=== PATIENT | male | born 1990 | race African-American/Black ===

== ENCOUNTER 2019-03-23 17:09 | Observation (INO) | payer SELFPAY ==
[2019-03-23] MEDS ORDERED: NA CHLORIDE 0.9% 1,000 ML ONE (17:27)
[2019-03-23] MEDS ORDERED: MEPERIDINE HCL 50 MG/ML ONE (17:27)
[2019-03-23] MEDS ORDERED: ONDANSETRON 4 MG/2 ML VIAL ONE (17:27)
[2019-03-23 17:34] LABS: Absolute Lymphocytes (CBC) 1.5 K/uL (0.7-4.9); Basophils % 0.6 % (0-1.3); Hematocrit 43.3 % (39.6-49.0); Lymphocytes % 23.5 % (15.3-44.8); MPV 9.3 fL (7.6-11.3)
[2019-03-23 17:35] LABS: Protime INR 0.95
--- NOTE | 2019-03-23 17:53 | RAD REPORT ---
EXAM DESCRIPTION: RAD - Chest Single View - 03/23/2019 5:47 pm CLINICAL HISTORY: CHEST PAIN Chest pain. COMPARISON: No comparisons FINDINGS: Portable technique limits examination quality. The lungs are grossly clear. The heart is normal in size. No displaced fractures. IMPRESSION: No acute intrathoracic process suspected.
[2019-03-23 18:02] LABS: ALT/SGPT 27 U/L (12-78); AST/SGOT 23 U/L (15-37); Albumin 4.1 g/dL (3.4-5.0); Alkaline Phosphatase 56 U/L (45-117); BUN Blood Urea Nitrogen 12 mg/dL (7-18); Bicarbonate 28 mmol/L (21-32); Bilirubin Direct < 0.1 mg/dL (0-0.2); Bilirubin Total 0.3 mg/dL (0.2-1.0); Glucose Level 125 mg/dL (74-106); Lipase 49 U/L (73-393); Magnesium 2.1 mg/dL (1.8-2.4); NT PRO-BNP 47 pg/mL (<125); Potassium 4.2 mmol/L (3.5-5.1); Sodium Level 143 mmol/L (136-145); Troponin (Emerg Dept Use Only) < 0.02 ng/mL (0.0-0.045)
[2019-03-23] MEDS ORDERED: HYDROMORPHONE HCL 0.5 MG/0.5 ML INJ ONE (18:26)
[2019-03-23] MEDS ORDERED: MAGNE/ALUM HYDROXD 30 ML UCUP ONE (18:26)
[2019-03-23] MEDS ORDERED: LIDOCAINE VISCOUS 2% SOLN 15 ML UDC ONE (18:27)
[2019-03-23] MEDS ORDERED: PANTOPRAZOLE 40 MG INJ ONE (18:27)
--- NOTE | 2019-03-23 19:32 | RAD REPORT ---
EXAM DESCRIPTION: US - Abdomen Exam Limited - 03/23/2019 7:12 pm CLINICAL HISTORY: r/o GB;Abd pain COMPARISON: <Comparisons> FINDINGS: The gallbladder demonstrates multiple large shadowing gallstones. No pericholecystic fluid or gallbladder wall thickening. The common bile duct is normal measuring 4 mm. The liver demonstrates no findings of intrahepatic biliary dilatation. IMPRESSION: Cholelithiasis.
[2019-03-23] MEDS ORDERED: HYDROMORPHONE HCL 1 MG/ML INJ ONE ×2 (19:53→21:37)
[2019-03-23] MEDS ORDERED: Meropenem 1 GM/100 ML BAG ONE (19:53)
--- NOTE | 2019-03-23 21:17 | ER ---
Nurse's Notes [facility] Name: Ricky Gardner Age: 28 yrs Sex: Male : 1990 Arrival Date: 03/23/2019 Time: 17:11 Bed 8 Private MD: Timi Lee S Diagnosis: Cholelithiasis;Intractable abdominal pain Presentation: 03/23 17:19 Presenting complaint: Patient states: chest and epigastric burning that began at 1400 ss today, and getting worse. Patient reports that last time he had this pain, it was a "combination of gallbladder and gallstones.". Transition of care: patient was not received from another setting of care. Onset of symptoms was March 23, 2019. Risk Assessment: Do you want to hurt yourself or someone else? Patient reports no desire to harm self or others. Initial Sepsis Screen: Does the patient meet any 2 criteria? No. Patient's initial sepsis screen is negative. Does the patient have a suspected source of infection? No. Patient's initial sepsis screen is negative. Care prior to arrival: None. 17:19 Method Of Arrival: Ambulatory ss 17:19 Acuity: BHAVNA 3 ss Historical: - Allergies: 17:22 PENICILLINS; ss - Home Meds: 17:22 None [Active]; ss - PMHx: 17:22 gallstones; ss - PSHx: 17:22 None; ss - Immunization history:: Adult Immunizations up to date. - Social history:: Smoking status: Patient uses tobacco products, smokes one-half pack cigarettes per day, Patient uses alcohol, only on a social basis. Patient/guardian denies using street drugs. - Ebola Screening: : Patient denies exposure to infectious person Patient denies travel to an Ebola-affected area in the 21 days before illness onset. Screenin:39 Abuse screen: Denies threats or abuse. Denies injuries from another. Nutritional rv screening: No deficits noted. Tuberculosis screening: No symptoms or risk factors identified. Fall Risk None identified. Assessment: 17:37 General: Appears uncomfortable, Behavior is restless. Pain: Complains of pain in chest rv Pain radiates to right arm Pain began 3 hours ago. Neuro: Level of Consciousness is awake, alert, obeys commands, Oriented to person, place, time, situation. Cardiovascular: Rhythm is sinus bradycardia. Respiratory: Airway is patent. GI: Pt is actively vomiting bile, Reports nausea. : No signs and/or symptoms were reported regarding the genitourinary system. EENT: No signs and/or symptoms were reported regarding the EENT system. Derm: Skin is intact. Musculoskeletal: No signs and/or symptoms reported regarding the musculoskeletal system. 19:10 Reassessment: No changes from previously documented assessment. rv 20:30 Reassessment: Patient and/or family updated on plan of care and expected duration. Pain ea level reassessed. Patient is alert, oriented x 3, equal unlabored respirations, skin warm/dry/pink. 21:50 Reassessment: Patient and/or family updated on plan of care and expected duration. Pain ea level reassessed. Patient is alert, oriented x 3, equal unlabored respirations, skin warm/dry/pink. 22:46 Reassessment: Report called to Megan HORAN on second floor. ea 23:16 Reassessment: Patient and/or family updated on plan of care and expected duration. Pain ea level reassessed. Patient is alert, oriented x 3, equal unlabored respirations, skin warm/dry/pink. Pt admitted to room 206, pt taken via stretcher, accompanied by family, pt tolerating well. Vital Signs: 17:22 BP 153 / 103; Pulse 69; Resp 24; Pulse Ox 100% on R/A; Weight 129.27 kg; Height 5 ft. 6 ss in. (167.64 cm); Pain 10/10; 17:30 Temp 98.6(TE); ss 18:00 BP 145 / 76; Pulse 73; Resp 19; Pulse Ox 98% on R/A; rv 18:30 BP 111 / 87; Pulse 68; Resp 15; Pulse Ox 98% on R/A; rv 19:00 BP 115 / 80; Pulse 68; Resp 24; Pulse Ox 98% on R/A; rv 20:15 BP 124 / 77; Pulse 64; Resp 18; Pulse Ox 100% on R/A; ea 21:43 BP 118 / 74; Pulse 60; Resp 19; Pulse Ox 95% on R/A; mt 23:00 BP 114 / 60; Pulse 60; Resp 18; Temp 97.8; Pulse Ox 98% on R/A; ea 17:22 Body Mass Index 46.00 (129.27 kg, 167.64 cm) ss ED Course: 17:11 Patient arrived in ED. mr 17:11 Timi Lee MD is Private Physician. mr 17:11 Matt Roldan, AUNG is Primary Nurse. rv 17:14 John Stafford PA is PHCP. jr8 17:14 Del Jones MD is Attending Physician. jr8 17:21 Triage completed. ss 17:22 Arm band placed on right wrist. ss 17:39 Patient has correct armband on for positive identification. Placed in gown. Bed in low rv position. Call light in reach. Side rails up X 1. Adult w/ patient. panel monitor on. Pulse ox on. NIBP on. 17:39 Inserted saline lock: 20 gauge in right antecubital area, using aseptic technique. rv Blood collected. Patient maintains SpO2 saturation greater than 95% on room air. 17:47 XRAY Chest (1 view) In Process Unspecified. EDMS 19:11 Ultrasound completed. Patient tolerated well. sg3 19:27 US Abdomen Limited In Process Unspecified. EDMS 20:44 Leeroy Sharpe MD is Hospitalizing Provider. jr8 20:50 Hospitalizing Provider role handed off by Leeroy Sharpe MD jr8 20:50 Alondra Terrazas MD is Hospitalizing Provider. jr8 22:46 No provider procedures requiring assistance completed. Patient admitted, IV remains in ea place. Administered Medications: 17:35 Drug: Zofran 4 mg Route: IVP; Site: right antecubital; rv 18:33 Follow up: Response: Nausea is decreased rv 17:35 Drug: NS 0.9% 500 ml Route: IV; Rate: bolus; Site: right antecubital; rv 17:36 Drug: Demerol 50 mg {Note: rass 1.} Route: IVP; Site: right antecubital; rv 18:32 Follow up: Response: Pain is unchanged, physician notified rv 18:32 Drug: GI Cocktail without - (Maalox Suspension 30 ml, Lidocaine Liquid 2 % 15 rv ml) Route: PO; 19:59 Follow up: Response: Pain is unchanged, physician notified rv 18:32 Drug: Dilaudid 0.5 mg {Note: rass 0.} Route: IVP; Site: right antecubital; rv 20:00 Follow up: Response: Pain is unchanged, physician notified rv 18:32 Drug: ProTONIX 40 mg Route: IVP; Site: left antecubital; rv 20:00 Follow up: Response: Pain is unchanged, physician notified rv 19:58 Drug: Meropenem 1 grams Route: IV; Rate: calculated rate; Site: right antecubital; rv 22:00 Follow up: Response: No adverse reaction; IV Status: Completed infusion; IV Intake: ea 100ml 19:58 Drug: Dilaudid 1 mg {Note: RASS 0.} Route: IVP; Site: right antecubital; rv 20:50 Follow up: Response: No adverse reaction; Pain is decreased; RASS: Restless (+1) ea 21:44 Drug: Dilaudid 1 mg {Note: RASS 1.} Route: IVP; Site: right antecubital; ea 22:30 Follow up: Response: No adverse reaction; Pain is decreased; RASS: Alert and Calm (0) ea Intake: 22:00 IV: 100ml; Total: 100ml. ea Outcome: 20:45 Decision to Hospitalize by Provider. jrBaljit 22:46 Instructed on the need for admit. ea 23:15 Admitted to Med/surg accompanied by tech, via stretcher, room 206, with chart, Report ea called to Receiving nurse on second floor 23:15 Condition: stable 23:25 Patient left the ED. ea Signatures: Dispatcher [employer] [facility] Mami DanielsLesly, RN John Perez PA PA jr8 Thompson, Moriah mt Antunez, Elena, RN RN ea Godinez, Sarah [facility] Matt Roldan RN RN rv
--- NOTE | 2019-03-23 21:18 | EDPHYS ---
Physician Documentation [facility] Name: Ricky Gardner Age: 28 yrs Sex: Male : 1990 Arrival Date: 03/23/2019 Time: 17:11 Bed 8 Private MD: Timi Lee S ED Physician Del Jones HPI: 03/23 18:00 This 28 yrs old Black Male presents to ER via Ambulatory with complaints of Chest Pain, jr8 Abdominal Pain. 18:01 The patient or guardian reports chest pain that is located primarily in the substernal jr8 area, epigastric area. The pain radiates to back. Associated signs and symptoms: Pertinent positives: nausea, vomiting. The chest pain is described as a pressure, sharp, stabbing. Duration: The patient or guardian reports a single episode, that is still ongoing. Modifying factors: The symptoms are alleviated by nothing. the symptoms are aggravated by nothing. Severity of pain: At its worst the pain was moderate in the emergency department the pain is unchanged. The patient has experienced a previous episode, but today's symptoms are worse. The patient has not recently seen a physician. Patient stated that he has had chest pain and epigastric pain in past and that it may be from gastritis and gallstones. Stated that it was mild at that time. Today while going to a wedding had sudden onset of symptoms again but much worse today . Historical: - Allergies: 17:22 PENICILLINS; ss - Home Meds: 17:22 None [Active]; ss - PMHx: 17:22 gallstones; ss - PSHx: 17:22 None; ss - Immunization history:: Adult Immunizations up to date. - Social history:: Smoking status: Patient uses tobacco products, smokes one-half pack cigarettes per day, Patient uses alcohol, only on a social basis. Patient/guardian denies using street drugs. - Ebola Screening: : Patient denies exposure to infectious person Patient denies travel to an Ebola-affected area in the 21 days before illness onset. ROS: 18:01 Eyes: Negative for injury, pain, redness, and discharge, ENT: Negative for injury, jr8 pain, and discharge, Neck: Negative for injury, pain, and swelling, Respiratory: Negative for shortness of breath, cough, wheezing, and pleuritic chest pain, Back: Negative for injury and pain, MS/Extremity: Negative for injury and deformity, Skin: Negative for injury, rash, and discoloration, Neuro: Negative for headache, weakness, numbness, tingling, and seizure. 18:01 Cardiovascular: Positive for chest pain, Negative for edema, orthopnea, palpitations, paroxysmal nocturnal dyspnea. 18:01 Abdomen/GI: Positive for abdominal pain, nausea and vomiting, Negative for diarrhea, constipation, abdominal cramps, abdominal distension, anorexia, dysphagia, hematemesis, black/tarry stool, rectal pain, rectal bleeding, bowel incontinence, flatulence. Exam: 18:01 Eyes: Pupils equal round and reactive to light, extra-ocular motions intact. Lids and jr8 lashes normal. Conjunctiva and sclera are non-icteric and not injected. Cornea within normal limits. Periorbital areas with no swelling, redness, or edema. ENT: Nares patent. No nasal discharge, no septal abnormalities noted. Tympanic membranes are normal and external auditory canals are clear. Oropharynx with no redness, swelling, or masses, exudates, or evidence of obstruction, uvula midline. Mucous membranes moist. Neck: Trachea midline, no thyromegaly or masses palpated, and no cervical lymphadenopathy. Supple, full range of motion without nuchal rigidity, or vertebral point tenderness. No Meningismus. Cardiovascular: Regular rate and rhythm with a normal S1 and S2. No gallops, murmurs, or rubs. Normal PMI, no JVD. No pulse deficits. Respiratory: Lungs have equal breath sounds bilaterally, clear to auscultation and percussion. No rales, rhonchi or wheezes noted. No increased work of breathing, no retractions or nasal flaring. Back: No spinal tenderness. No costovertebral tenderness. Full range of motion. Skin: Warm, dry with normal turgor. Normal color with no rashes, no lesions, and no evidence of cellulitis. MS/ Extremity: Pulses equal, no cyanosis. Neurovascular intact. Full, normal range of motion. Neuro: Awake and alert, GCS 15, oriented to person, place, time, and situation. Cranial nerves II-XII grossly intact. Motor strength 5/5 in all extremities. Sensory grossly intact. Cerebellar exam normal. Normal gait. 18:01 Abdomen/GI: Inspection: obese Bowel sounds: active, all quadrants, Palpation: soft, in all quadrants, moderate abdominal tenderness, in the epigastric area and right upper quadrant, mass, is not appreciated, rebound tenderness, is not appreciated, voluntary guarding, is not appreciated, involuntary guarding, is not appreciated, no appreciated organomegaly, Indicators: McBurney's point is not tender, Ching's sign is positive, Rovsing's sign is negative, Liver: tenderness, is not appreciated. Vital Signs: 17:22 BP 153 / 103; Pulse 69; Resp 24; Pulse Ox 100% on R/A; Weight 129.27 kg; Height 5 ft. 6 ss in. (167.64 cm); Pain 10/10; 17:30 Temp 98.6(TE); ss 18:00 BP 145 / 76; Pulse 73; Resp 19; Pulse Ox 98% on R/A; rv 18:30 BP 111 / 87; Pulse 68; Resp 15; Pulse Ox 98% on R/A; rv 19:00 BP 115 / 80; Pulse 68; Resp 24; Pulse Ox 98% on R/A; rv 20:15 BP 124 / 77; Pulse 64; Resp 18; Pulse Ox 100% on R/A; ea 21:43 BP 118 / 74; Pulse 60; Resp 19; Pulse Ox 95% on R/A; mt 23:00 BP 114 / 60; Pulse 60; Resp 18; Temp 97.8; Pulse Ox 98% on R/A; ea 17:22 Body Mass Index 46.00 (129.27 kg, 167.64 cm) ss MDM: 17:18 Patient medically screened. jr8 20:10 Data reviewed: vital signs, nurses notes, lab test result(s), EKG, radiologic studies, jr8 plain films, ultrasound. Data interpreted: Pulse oximetry: on room air is 98 %. Interpretation: normal. Counseling: I had a detailed discussion with the patient and/or guardian regarding: the historical points, exam findings, and any diagnostic results supporting the discharge/admit diagnosis, lab results, radiology results. ED course: Consulted Dr. Sharpe due to intractable pain at this point. Wants me to try antibiotics and a couple more rounds of pain medication. If still not better will admit and do a cholecystectomy . 20:41 ED course: Patient stated that the medications makes him sleepy but pain still 8 of 10. jr8 Will admit to Dr. Sharpe . 03/23 17:19 Order name: Basic Metabolic Panel; Complete Time: 18:03 03/23 17:19 Order name: CBC with Diff; Complete Time: 17:54 03/23 17:19 Order name: LFT's; Complete Time: 18:03 03/23 17:19 Order name: Magnesium; Complete Time: 18:03 03/23 17:19 Order name: NT PRO-BNP; Complete Time: 18:03 03/23 17:19 Order name: PT-INR; Complete Time: 17:54 03/23 17:19 Order name: Troponin (emerg Dept Use Only); Complete Time: 18:03 03/23 17:19 Order name: XRAY Chest (1 view); Complete Time: 17:59 03/23 17:19 Order name: Lipase; Complete Time: 18:03 03/23 17:59 Order name: US Abdomen Limited; Complete Time: 19:40 03/23 19:44 Order name: Troponin (emerg Dept Use Only); Complete Time: 20:40 fc 03/23 17:19 Order name: EKG; Complete Time: 17:22 03/23 17:19 Order name: Cardiac monitoring; Complete Time: 17:25 03/23 17:19 Order name: EKG - Nurse/Tech; Complete Time: 17:25 03/23 17:19 Order name: IV Saline Lock; Complete Time: 17:25 03/23 17:19 Order name: Labs collected and sent; Complete Time: 17:25 03/23 17:19 Order name: O2 Per Protocol; Complete Time: 17:25 03/23 17:19 Order name: O2 Sat Monitoring; Complete Time: 17:25 03/23 22:34 Order name: CONS Physician Consult EDMS 03/23 22:34 Order name: NPO EDMS Administered Medications: 17:35 Drug: Zofran 4 mg Route: IVP; Site: right antecubital; rv 18:33 Follow up: Response: Nausea is decreased rv 17:35 Drug: NS 0.9% 500 ml Route: IV; Rate: bolus; Site: right antecubital; rv 17:36 Drug: Demerol 50 mg {Note: rass 1.} Route: IVP; Site: right antecubital; rv 18:32 Follow up: Response: Pain is unchanged, physician notified rv 18:32 Drug: GI Cocktail without - (Maalox Suspension 30 ml, Lidocaine Liquid 2 % 15 rv ml) Route: PO; 19:59 Follow up: Response: Pain is unchanged, physician notified rv 18:32 Drug: Dilaudid 0.5 mg {Note: rass 0.} Route: IVP; Site: right antecubital; rv 20:00 Follow up: Response: Pain is unchanged, physician notified rv 18:32 Drug: ProTONIX 40 mg Route: IVP; Site: left antecubital; rv 20:00 Follow up: Response: Pain is unchanged, physician notified rv 19:58 Drug: Meropenem 1 grams Route: IV; Rate: calculated rate; Site: right antecubital; rv 22:00 Follow up: Response: No adverse reaction; IV Status: Completed infusion; IV Intake: ea 100ml 19:58 Drug: Dilaudid 1 mg {Note: RASS 0.} Route: IVP; Site: right antecubital; rv 20:50 Follow up: Response: No adverse reaction; Pain is decreased; RASS: Restless (+1) ea 21:44 Drug: Dilaudid 1 mg {Note: RASS 1.} Route: IVP; Site: right antecubital; ea 22:30 Follow up: Response: No adverse reaction; Pain is decreased; RASS: Alert and Calm (0) ea Disposition: 03/23/19 20:45 Hospitalization ordered by Alondra Terrazas for Observation. Preliminary diagnosis are Cholelithiasis, Intractable abdominal pain . - Bed requested for Telemetry/MedSurg (observation). - Status is Observation. ea - Condition is Stable. - Problem is new. - Symptoms are unchanged. UTI on Admission? No Addendum: 03/26/2019 15:17 Co-signature as Attending Physician, Del Jonse MD. g s Signatures: Dispatcher [employer] [facility] Claudia Souza RN RN Lesly Way RN RN ss John Stafford, KOBE PA jr8 Madison Win RN RN ea Starr, Gregory, MD MD Jamar, Matt, RN RN rv Corrections: (The following items were deleted from the chart) 03/23 20:50 20:45 Hospitalization Ordered by Leeroy Sharpe MD for Observation. Preliminary diagnosis jr8 is Cholelithiasis; Intractable abdominal pain . Bed requested for Telemetry/MedSurg (observation). Status is Observation. Condition is Stable. Problem is new. Symptoms are unchanged. UTI on Admission? No. jr8 22:36 20:50 03/23/2019 20:45 Hospitalization Ordered by Alondra Terrazas MD for Observation. mw Preliminary diagnosis is Cholelithiasis; Intractable abdominal pain . Bed requested for Telemetry/MedSurg (observation). Status is Observation. Condition is Stable. Problem is new. Symptoms are unchanged. UTI on Admission? No. jr8 23:25 22:36 03/23/2019 20:45 Hospitalization Ordered by Alondra Terrazas MD for Observation. ea Preliminary diagnosis is Cholelithiasis; Intractable abdominal pain . Bed requested for Telemetry/MedSurg (observation). Status is Observation. Condition is Stable. Problem is new. Symptoms are unchanged. UTI on Admission? No. mw
[2019-03-23] MEDS ORDERED: ONDANSETRON 4 MG/2 ML VIAL IV PRN (21:48)
[2019-03-23] MEDS ORDERED: Levofloxacin500mg IV 500 MG/100 ML BAG IV SCH (22:00)
[2019-03-24] MEDS: NA CHLORIDE 0.9% 1,000 ML IV SCH ×2 (00:26→08:00)
[2019-03-24] MEDS: METRONIDAZOLE 500mg IVPB 500 MG/100 ML BAG IV SCH ×3 (00:27→11:20)
[2019-03-24] MEDS: MORPHINE 4 MG/ML SYR IV PRN ×2 (00:27→03:57)
[2019-03-24 04:59] LABS: Urine Appearance CLEAR; Urine Bilirubin NEGATIVE (NEG); Urine Blood NEGATIVE (NEG); Urine Color YELLOW; Urine Glucose NEGATIVE (NEG); Urine Protein NEGATIVE (NEG); Urine Urobilinogen 0.2 mg/dL (0.2-1.0)
[2019-03-24 05:00] LABS: Urine Microscopic Reflex NO UMIC
[2019-03-24 06:18] LABS: Absolute Lymphocytes (CBC) 1.2 K/uL (0.7-4.9); Basophils % 0.2 % (0-1.3); Hematocrit 42.6 % (39.6-49.0); MPV 10.1 fL (7.6-11.3)
[2019-03-24 06:27] LABS: ALT/SGPT 27 U/L (12-78); AST/SGOT 17 U/L (15-37); Albumin 3.9 g/dL (3.4-5.0); Alkaline Phosphatase 49 U/L (45-117); BUN Blood Urea Nitrogen 10 mg/dL (7-18); Bicarbonate 29 mmol/L (21-32); Bilirubin Total 0.6 mg/dL (0.2-1.0); Glucose Level 94 mg/dL (74-106); Lipase 46 U/L (73-393); Magnesium 2.2 mg/dL (1.8-2.4); Phosphorus 2.8 mg/dL (2.5-4.9); Potassium 4.3 mmol/L (3.5-5.1); Sodium Level 141 mmol/L (136-145)
[2019-03-24 06:38] LABS: Protime INR 1.03
[2019-03-24] MEDS ORDERED: MORPHINE 2 MG/ML SYR IV ONE (06:48)
--- NOTE | 2019-03-24 07:41 | P.HP ---
Certification for Inpatient Patient admitted to: Observation With expected LOS: <2 Midnights Patient will require the following post-hospital care: None Practitioner: I am a practitioner with admitting privileges, knowledge of patient current condition, hospital course, and medical plan of care. Services: Services provided to patient in accordance with Admission requirements found in Title 42 Section 412.3 of the Code of Federal Regulations Patient History Date of Service: 03/23/19 Reason for admission: Abdominal pain/nausea and vomiting History of Present Illness: Patient is a 28-year-old gentleman who comes into the hospital with abdominal discomfort. He also has some epigastric pain as well. He said the pain is diffuse but mainly in the right upper quadrant-he states that the pain is sharp and can radiate to the right upper back. Patient has had intractable nausea and vomiting. He has had similar symptoms in the past. He was told that he may have gallstones or gastritis. He has been having an for the last 24 hr. His symptoms of gradually worsened so he came into the emergency room for further evaluation. In the ER he had multiple diagnostic studies including EKG and troponins. These were negative. He also had a abdominal ultrasound which revealed cholelithiasis. He will be admitted to the hospital for further evaluation. Allergies Penicillins Allergy (Mild, Verified 03/23/19 21:50) Hives/Rash Home Medications: NK [No Home Meds] 03/24/19 - Past Medical/Surgical History Has patient received pneumonia vaccine in the past: No Diabetic: No -: gallstone -: blilateral tube hearing - Family History Mother Medical History: Cancer - Social History Smoking Status: Current every day smoker Alcohol use: Yes Place of Residence: Home Review of Systems 10-point ROS is otherwise unremarkable Physical Examination - Vital Signs Temperature: 97.8 F Blood Pressure: 140/90 Pulse: 63 Respirations: 18 Pulse Ox (%): 97 - Physical Exam General: Alert, In no apparent distress, Oriented x3 HEENT: Atraumatic, PERRLA, Mucous membr. moist/pink, EOMI, Sclerae nonicteric Neck: Supple, 2+ carotid pulse no bruit, No LAD, Without JVD or thyroid abnormality Respiratory: Clear to auscultation bilaterally, Normal air movement Cardiovascular: Regular rate/rhythm, Normal S1 S2, No murmurs Gastrointestinal: Normal bowel sounds, Soft and benign, Non-distended, No tenderness Musculoskeletal: No clubbing, No swelling, No tenderness Integumentary: No rashes Neurological: Normal gait, Normal speech, Normal strength at 5/5 x4 extr, Normal tone, Sensation intact, Cranial nerves 3-12 intact, Normal affect Lymphatics: No axilla or inguinal lymphadenopathy - Studies Laboratory Data (last 24 hrs) 03/23/19 17:20: PT 11.2, INR 0.95 03/23/19 17:20: WBC 6.5, Hgb 14.1, Hct 43.3, Plt Count 188 03/23/19 17:20: Sodium 143, Potassium 4.2, BUN 12, Creatinine 1.15, Glucose 125 H, Magnesium 2.1, Total Bilirubin 0.3, AST 23, ALT 27, Alkaline Phosphatase 56, Lipase 49 L Assessment & Plan - Problems (Diagnosis) (1) Abdominal pain Current Visit: Yes Status: Acute (2) Cholelithiasis Current Visit: Yes Status: Acute - Plan Plan: 1. IV hydration 2. Pain control 3. NPO 4. Surgery consultation 5. EKG and serial troponins 6. Monitor LFTs and lipase 7. Strict blood pressure control 8. GI and DVT prophylaxis Discharge Plan: Home Plan to discharge in: 48 Hours - Advance Directives Does patient have a Living Will: No Does patient have a Durable POA for Healthcare: No - Code Status/Comfort Care Code Status Assessed: Yes Code Status: Full Code Critical Care: No Time Spent Managing PTS Care (In Minutes): 45
--- NOTE | 2019-03-24 09:16 | P.PN ---
Subjective Date of Service: 03/24/19 Primary Care Provider: Dr. Lee Chief Complaint: Abdominal pain/nausea and vomiting Subjective: Other (Still with abdominal pain this morning. Nausea improved.) Physical Examination - Vital Signs Temperature: 97.8 F Blood Pressure: 140/90 Pulse: 63 Respirations: 18 Pulse Ox (%): 97 - Physical Exam General: Alert, In no apparent distress, Oriented x3, Cooperative HEENT: Atraumatic Neck: Supple Respiratory: Clear to auscultation bilaterally, Normal air movement Cardiovascular: Normal pulses, Regular rate/rhythm Gastrointestinal: Normal bowel sounds, Soft and benign, Non-distended, No masses , No rebound, No guarding, Tenderness (Right upper quadrant tenderness) Musculoskeletal: No erythema, No tenderness, No warmth Integumentary: No tenderness/swelling, No erythema, No warmth, No cyanosis Neurological: Normal speech, Normal strength at 5/5 x4 extr, Normal tone, Normal affect - Studies Laboratory Data (last 24 hrs) 03/23/19 17:20: PT 11.2, INR 0.95 03/23/19 17:20: WBC 6.5, Hgb 14.1, Hct 43.3, Plt Count 188 03/23/19 17:20: Sodium 143, Potassium 4.2, BUN 12, Creatinine 1.15, Glucose 125 H, Magnesium 2.1, Total Bilirubin 0.3, AST 23, ALT 27, Alkaline Phosphatase 56, Lipase 49 L Medications List Reviewed: Yes Assessment & Plan Discharge Plan: Home Plan to discharge in: 24 Hours Physician Review Additional Text: Impression: Right upper quadrant abdominal pain with nausea and vomiting secondary to acute cholecystitis with cholelithiasis Obesity, BMI 50.3 Plan: Right upper quadrant abdominal pain with nausea and vomiting secondary to acute cholecystitis with cholelithiasis: Patient remains NPO at this time. Continue IV antibiotic therapy. Continue medication for pain and nausea. Patient on DVT prophylaxis-Lovenox. Abdominal ultrasound reviewed. Await surgery recommendations. Anticipate need for surgical intervention during this hospitalization. Anticipate discharge in the next 24 hr pending surgical evaluation with possible intervention. Obesity, BMI 50.3: Will address lifestyle modification education. Time Spent Managing Pts Care (In Minutes): 55
[2019-03-24] MEDS ORDERED: BUPIVACA 0.5%/EPI 0.0005%/PF 10 ML VIAL ONE (10:38)
[2019-03-24] MEDS ORDERED: SUCCINYLCHOLINE 20 MG/ML (10 ML) IV ONE (10:38)
[2019-03-24] MEDS ORDERED: PROPOFOL 200 MG/20 ML VIAL IV ONE (10:43)
[2019-03-24] MEDS ORDERED: MIDAZOLAM HCL 2 MG/2 ML INJ ONE ×2 (10:44→11:16)
[2019-03-24] MEDS ORDERED: FENTANYL CITR 250 MCG/5 ML ONE (10:44)
[2019-03-24] MEDS ORDERED: GLYCOPYRROLATE 0.2 MG/ML SYR ONE ×3 (10:50→11:52)
[2019-03-24] MEDS ORDERED: ROCURONIUM 50 MG/5 ML VIAL IV ONE ×2 (10:50→11:15)
--- NOTE | 2019-03-24 10:53 | CON ---
Date of Consultation: 03/24/2019 Brief History Of Present Illness: Patient is a 28-year-old gentleman, who comes to the hospital with abdominal pain in the epigastrium right upper quadrant with radiation to his back i nto his chest beginning yesterday. It was mainly in the right upper quadrant and it was sharp, stabb ing, and caused intractable nausea and vomiting for some time. He has had similar episodes before in the past. He was told he had gallstones in the past and maybe inflammation of the stomach. This avitia s been getting progressively worse and as such, he came to the emergency room. He was treated in the emergency room with pain medication and IV fluids and his pain did not significantly improve and as such, he was admitted to the hospital. He had multiple diagnostic studies including EKG and troponin s, which were all negative. He was admitted for pain management and surgical planning. Past Medical History: Significant for gallstones. Past Surgical History: Negative. Allergies: PENICILLIN, WHICH CAUSES MILD RASH. Home Medications: None. Social History: He smokes a pack per day for years. He uses alcohol recreationally. Denies any rec reational drug use. His mother has a history of cancer. Review of Systems: 10-point review of systems other than HPI, denies. Physical Examination: Vital Signs: At the time of my examination, his BMI is 50.3. His blood pressure 140/90, pulse is 63 , respiratory rate 18, temperature 97.8. General: He is awake, alert, and oriented. Psychiatric: Appropriate. Conversive. HEENT: Normocephalic. Sclerae icteric. Mucous membranes are moist. Oropharynx clear. Neck: Supple. No JVD. Chest: Normal expansion and excursion. Cardiovascular: Regular rate and rhythm. Pulmonary: Clear to auscultation bilaterally. Abdomen: Soft with positive right upper quadrant Ching sign. Positive rebound. Positive focal per itonitis. Extremities: No clubbing, cyanosis, or edema. Skin: Warm and dry. Laboratory Data: Reveals a white blood count of 11.7, hemoglobin is 14.3, hematocrit of 42.6, platel et count 246, neutrophils 83%, PT 12.1, INR 1.03, PTT is 36.1. Sodium 141, potassium 4.3, chloride 1 05, carbon dioxide 29, BUN 10, creatinine 0.9, glucose is 94, magnesium 2.2, total bilirubin 0.6, dir ect component was 0.1 on admission. AST is 17, ALT 27, alkaline phosphatase is 49. His lipase is 46 . UA was essentially negative. He had an ultrasound of the right upper quadrant, which officially r ead as cholelithiasis. Gallbladder demonstrates multiple large shadowing stones, no pericholecystic fluid or gallbladder wall thickening, and the common bile duct is normal, measuring 4 mm. Liver demo nstrates no findings of intrahepatic biliary ductal dilatation. Assessment And Plan: This is a 28-year-old male, who comes in with signs and symptoms of acute bilia ry colic with cholelithiasis. 1.IV fluid hydration. 2.Antibiotic coverage. 3.I have explained the risks, benefits, and alternatives of laparoscopic, possible open cholecystect bryce including but not limited to bleeding, infection, damage to surrounding tissues, need for further operation procedures, injury to bile ducts and intestines. Patient agrees to proceed as indicated. Thank you for this interesting consult. SAMMY/JOSE ANGEL Voice ID: [id number] Report ID: [id number]
[2019-03-24] MEDS ORDERED: NA CHLORIDE 0.9% 0 ML ONE (11:13)
[2019-03-24] MEDS ORDERED: Ringers Lactate 1,000 ML IV ONE (11:15)
[2019-03-24] MEDS ORDERED: NEOSTIGMINE 1 MG/ML -10 ML VIAL ONE (11:51)
[2019-03-24] MEDS ORDERED: ONDANSETRON 4 MG/2 ML VIAL ONE (11:52)
--- NOTE | 2019-03-24 12:21 | P.OP ---
Preoperative diagnosis: Cholecystitis with Cholelithiasis Postoperative diagnosis: Cholecystitis with Cholelithiasis Primary procedure: Laparoscopic Cholecystectomy Anesthesia: GETA + Local Estimated blood loss: <5cc Specimen: Gallbladder Findings: Inflammation, distended gallbladder, stone in GB neck, adhesions Complications: None Transferred to: Recovery Room Condition: Good
--- NOTE | 2019-03-24 12:44 | P.DS ---
Admission Date: 03/23/19 Discharge Date: 03/24/19 Primary Care Provider: Dr. Lee Disposition: ROUTINE DISCHARGE Discharge Condition: GOOD Reason for Admission: Abdominal pain/nausea and vomiting Consultations: Surgery-Dr. Sharpe Procedures: ABUS: FINDINGS: The gallbladder demonstrates multiple large shadowing gallstones. No pericholecystic fluid or gallbladder wall thickening. The common bile duct is normal measuring 4 mm. The liver demonstrates no findings of intrahepatic biliary dilatation. IMPRESSION: Cholelithiasis. Surgery: Date of procedure: 03/24/2019 Surgeon: Dr. Leeroy Sharpe Preop diagnosis: Cholecystitis with cholelithiasis Postop diagnosis: Cholecystitis with cholelithiasis Primary procedure: Laparoscopic cholecystectomy Specimen gallbladder Findings: Inflammation, distended gallbladder, stone in gallbladder neck, adhesions Complications: None Conditions: Good Medical Problem List: Right upper quadrant abdominal pain with nausea and vomiting secondary to acute cholecystitis with cholelithiasis Obesity, BMI 50.3 Brief History of Present Illness: 28-year-old male presented to the emergency room with nausea, vomiting and right upper quadrant abdominal pain. Patient with history of gallstones. Patient found to have acute cholecystitis with cholelithiasis. Patient was admitted for further evaluation and treatment. Surgery consulted. Hospital Course: Patient presented with right upper quadrant abdominal pain with nausea and vomiting secondary to acute cholecystitis with cholelithiasis. Patient seen and evaluated by surgery. Surgical intervention was required. Patient had laparoscopic cholecystectomy. No complications noted. Patient cleared by surgery for discharge. Patient will be provided medication for pain by surgery to be use as needed. Recommendation is to follow up with surgery in 1 week. No heavy lifting, pushing or pulling is recommended. Postop care provided. Vital Signs/Physical Exam: Temp Pulse Resp BP Pulse Ox 98.4 F 93 H 18 141/74 H 97 03/24/19 12:35 03/24/19 12:35 03/24/19 12:35 03/24/19 12:35 03/24/19 09:16 General: Alert, In no apparent distress, Oriented x3, Cooperative HEENT: Atraumatic Neck: Supple Respiratory: Clear to auscultation bilaterally, Normal air movement Cardiovascular: Normal pulses, Regular rate/rhythm Gastrointestinal: Other (Postop changes noted) Neurological: Normal speech, Normal strength at 5/5 x4 extr, Normal tone Laboratory Data at Discharge: WBC 11.7 K/uL (4.3-10.9) H D 03/24/19 05:38 Hgb 14.3 g/dL (13.6-17.9) 03/24/19 05:38 Hct 42.6 % (39.6-49.0) 03/24/19 05:38 Plt Count 246 K/uL (152-406) D 03/24/19 05:38 PT 12.1 SECONDS (9.5-12.5) 03/24/19 05:38 INR 1.03 03/24/19 05:38 APTT 36.1 SECONDS (24.3-36.9) 03/24/19 05:38 Sodium 141 mmol/L (136-145) 03/24/19 05:38 Potassium 4.3 mmol/L (3.5-5.1) 03/24/19 05:38 BUN 10 mg/dL (7-18) 03/24/19 05:38 Creatinine 0.98 mg/dL (0.55-1.3) 03/24/19 05:38 Glucose 94 mg/dL (74-106) 03/24/19 05:38 Phosphorus 2.8 mg/dL (2.5-4.9) 03/24/19 05:38 Magnesium 2.2 mg/dL (1.8-2.4) 03/24/19 05:38 Total Bilirubin 0.6 mg/dL (0.2-1.0) 03/24/19 05:38 AST 17 U/L (15-37) 03/24/19 05:38 ALT 27 U/L (12-78) 03/24/19 05:38 Alkaline Phosphatase 49 U/L (45-117) 03/24/19 05:38 Lipase 46 U/L (73-393) L 03/24/19 05:38 Home Medications: NK [No Home Meds] 03/24/19 Patient Discharge Instructions: 1. Patient presented with right upper quadrant abdominal pain with nausea and vomiting secondary to acute cholecystitis with cholelithiasis. Patient seen and evaluated by surgery. Surgical intervention was required. Patient had laparoscopic cholecystectomy. No complications noted. Patient cleared by surgery for discharge. Patient will be provided medication for pain by surgery to be use as needed. Recommendation is to follow up with surgery in 1 week. No heavy lifting, pushing or pulling is recommended. Postop care provided. Diet: Harvel Activity: No lifting more than 10 lbs Followup: Leeroy Sharpe MD [ACTIVE - CAN ADMIT] - Time spent managing pt's care (in minutes): 55
[2019-03-24] MEDS ORDERED: KETOROLAC 30 MG/ML INJ ONE (12:52)
--- NOTE | 2019-03-24 14:24 | OP ---
Date of Procedure: 03/24/2019 Surgeon: Leeroy Sharpe MD, Preoperative Diagnosis: Cholecystitis with cholelithiasis. Postoperative Diagnosis: Cholecystitis with cholelithiasis. Procedure Performed: Laparoscopic cholecystectomy. Anesthesia: General endotracheal plus local with 0.5% Marcaine with epinephrine. Estimated Blood Loss: 5 mL. Specimen: Gallbladder. Findings: 1.Inflammation. 2.Distended gallbladder. 3.Stone in gallbladder neck impacted. 4.Dense abdominal adhesions between the duodenum/stomach to anterior wall of gallbladder requiring b doug dissection. Complications: None. Disposition: Transferred to recovery room in good condition. Procedure In Detail: After informed consent was obtained, patient was brought to the operating room, prepped and draped in the usual sterile fashion. After adequate anesthesia was achieved, a supraumb ilical area was anesthetized with 0.25% Marcaine and sharply incised. A 5-mm trocar was introduced i nto the abdomen without evidence of complication. There was no injury upon entry into the abdomen to any vital structures and the abdomen was inspected at this time visually. Additional trocar site wa s chosen in the epigastric region. This was similarly anesthetized, sharply incised. A 5-mm trocar was introduced in the abdomen without evidence of complication. The umbilical trocar was then up-siz ed to a 12 mm under direct visualization without evidence of complication. Additional trocar site wa s chosen in the right upper quadrant. These were both similarly anesthetized, sharply incised and tw o 5 mm trocars introduced in the abdomen without evidence of complication for a total of 4 trocar ent melina. Patient was then positioned head up, right-side up position. Ratcheted grasper was used to at tempt to grasp the patient's gallbladder, which was found to be quite distended. Decompression needl e was then inserted in the fundus of the gallbladder and decompressed the gallbladder adequately to a llow for grasping and manipulation of the gallbladder. There were multiple dense adhesions between t he stomach, duodenum and omentum to the anterior and lateral aspect of the gallbladder as well as ludmila n to the Radha pouch region. These required blunt and sharp dissection as well as minimal electro cautery. After the dissection was completed, the ratcheted grasper was used to grasp the patient's g allbladder fundus and placed toward his right shoulder. Dissection continued down near the Radha pouch to expose 2 structures, both identified as the cystic duct, cystic artery. The critical view o f safety was obtained at this time visualizing the liver posteriorly and only the 2 structures were e ntering the gallbladder. The titanium clips were then placed doubly on the proximal and singly on th e distal side of both cystic duct and cystic artery and they were ligated using Endo Peter at this t emiliana. The gallbladder was removed off the hepatic fossa without evidence of complication. There was minimal hemostatic maneuvers required on the lateral aspect of the gallbladder fossa which were easil y controlled with electrocautery. The gallbladder was then placed in an EndoCatch bag, removed the u mbilical trocar, sent off for pathologic examination. The abdomen was then inspected one last time. The clips were found to be in good anatomic position. There was no spillage of bile. No additional hemostatic maneuvers were required. The abdomen was then copiously irrigated in this area in the gibbons bhepatic space and suprahepatic space and suctioned completely dry. The patient was then positioned in neutral position. The umbilical trocar was removed. The umbilical trocar site was then closed us ing a Carlos-Angela suture passer with 0 Vicryl in interrupted fashion with good approximation of t he tissues. The abdomen was then completely desufflated under direct visualization without evidence of complication. All trocars were then removed. All skin incisions were copiously irrigated and la sed with a 4-0 Monocryl in a running fashion. Dermabond was placed over the top. Patient tolerated the procedure well without incident or complication, and transferred to PACU in good condition. All counts were correct at the end of the case. SAMMY/JOSE ANGEL Voice ID: [id number] Report ID: [id number]
--- NOTE | 2019-03-24 16:56 | EKG ---
Test Date: 2019-03-24 Test Time: 08:29:25 Architecture Internship: JAH MEASUREMENT RESULTS: Intervals: Rate: 85 WI: 154 QRSD: 90 QT: 344 QTc: 409 [place]: P: 14 WI: 154 QRS: 35 T: -62 INTERPRETIVE STATEMENTS: Normal sinus rhythm Inferior-posterior infarct, age undetermined Abnormal ECG No previous ECG available for comparison Electronically Signed On 03-24-19 16:55:53 CDT by Héctor Niño
--- NOTE | 2019-03-24 16:58 | EKG ---
Test Date: 2019-03-23 Test Time: 17:14:02 Production Control Analyst: MEASUREMENT RESULTS: Intervals: Rate: 56 CA: 142 QRSD: 102 QT: 430 QTc: 414 [place]: P: 34 CA: 142 QRS: 40 T: -36 INTERPRETIVE STATEMENTS: Sinus bradycardia with sinus arrhythmia Possible Inferior infarct, age undetermined Abnormal ECG No previous ECG available for comparison Electronically Signed On 03-24-19 16:56:14 CDT by Héctor Niño
[2019-03-24] MEDS ORDERED: ENOXAPARIN 30 MG/0.3 ML SQ SCH (17:00)
[2019-03-24] MEDS ORDERED: ENOXAPARIN 40 MG/0.4 ML SQ SCH (17:00)
== END 2019-03-24 17:26 | disposition home or self-care (01) ==
LOC: ER 17:09 → ERHOLD 21:49 → 2ND 23:03
PROVIDERS: ADMIT Hospitalist; ATTEND Hospitalist
PROC: 0FT44ZZ Resection of Gallbladder, Percutaneous Endoscopic Approach (ICD-10-PCS; principal; 2019-03-24 10:00)
DX: K80.00 Calculus of gallbladder with acute cholecystitis without obstruction (principal); E66.9 Obesity, unspecified; Z68.43 Body mass index [BMI] 50.0-59.9, adult; Z88.0 Allergy status to penicillin; F17.210 Nicotine dependence, cigarettes, uncomplicated
CPT/HCPCS: 36415; 71045; 76705; 80048; 80053; 80076; 81003; 83690; 83735; 83880; 84100; 84484; 85025; 85610; 85730; 88304; 93005; 96365; 96366; 96375; 99285; C9113; G0378; J0330; J1170; J2175; J2185; J2250; J2270; J2405; J2704; J2710; J3010; J7030